=== PATIENT | female | born 2000 | race Caucasian/White ===

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

== ENCOUNTER → 2019-10-16 | Outpatient (CLI) | payer OTHER | LOC: COL.RAD 14:17 | DX: N94.6 Dysmenorrhea, unspecified (principal); R19.09 Other intra-abdominal and pelvic swelling, mass and lump | CPT/HCPCS: A9585 ==

== ENCOUNTER → 2021-08-08 | Outpatient (CLI) | payer OTHER | LOC: COL.RAD 07:31 | DX: N83.201 Unspecified ovarian cyst, right side (principal); N80.9 Endometriosis, unspecified | CPT/HCPCS: A9575 ==

== ENCOUNTER 2021-12-10 17:39 | Emergency (ER) | payer SELFPAY ==
[~2021-12-10] VITALS: Ht 154.9 cm; Wt 61.4 kg
[2021-12-10 17:59] VITALS: BP 139/89; TEMP 98.6
[2021-12-10 18:46] LABS: BASO % 0.7 % (0.0-2.0); EOS # 0.2 K/mm3 (0.0-0.7); EOS % 3.4 % (0.0-4.0); GRAN # 2.4 K/mm3 (1.4-6.5); GRAN % 53.4 % (42.2-75.2); HEMATOCRIT 39.2 % (37.0-47.0); HEMOGLOBIN 13.4 g/dl (12.5-16.0); LYMPH # 1.5 K/mm3 (1.2-3.4); LYMPH % 33.3 % (20.0-51.0); MEAN CELL VOLUME 85 fl (80.0-100.0); MEAN CORPUSCULAR HEMOGLOBIN 29 pg (27-31); MEAN CORPUSCULAR HGB CONC 34 g/dl (33.0-37.0); MEAN PLATELET VOLUME 10.4 fl (7.4-10.4); MONO # 0.4 K/mm3 (0.1-0.6); MONO % 8.7 % (1.7-9.3); PLATELET COUNT 169 K/mm3 (130-400); RED BLOOD COUNT 4.61 M/mm3 (4.10-5.30); REDCELL DISTRIBUTION WIDTH-CV 12.5 % (11.5-14.5)
[2021-12-10 18:57] LABS: COLLECTION METHOD CLEAN CATCH
[2021-12-10 19:00] LABS: ALBUMIN 3.9 gm/dL (3.5-5.0); BILIRUBIN,TOTAL 0.3 mg/dL (0.2-1.2); CREATININE, serum 0.75 mg/dL (0.57-1.11); POTASSIUM 3.6 mmol/L (3.5-4.5); TOTAL PROTEIN 7.1 gm/dL (6.2-8.1)
[2021-12-10 19:03] LABS: MUCOUS Present (NOT PRESENT); PH 6 (5-8); URINE APPEARANCE Hazy (CLEAR/HAZY); URINE BACTERIA Rare /hpf (NONE SEEN); URINE BLOOD Negative (NEGATIVE); URINE COLOR Yellow (YELLOW); URINE GLUCOSE Negative (NEGATIVE); URINE KETONE Negative (NEGATIVE); URINE NITRATE Negative (NEGATIVE); URINE PROTEIN(semi-quant) Negative (NEGATIVE); URINE RBC 0-2 /hpf (0-2); URINE UROBILINOGEN Negative (NEGATIVE)
[2021-12-10] MEDS ORDERED: ZOFRAN ODT4 MG PO (19:51)
[2021-12-10] MEDS ORDERED: ULTRAM 50MG TAB50 MG PO (19:51)
[2021-12-10 20:03] VITALS: PULSE 79
== END 2021-12-10 20:05 | disposition home or self-care (01) ==
LOC: COL.ER 17:39
PROVIDERS: Nurse Practitioner Primary Care
DX: R10.11 Right upper quadrant pain (principal); R10.12 Left upper quadrant pain; R10.13 Epigastric pain; R19.7 Diarrhea, unspecified; R11.0 Nausea; Z32.02 Encounter for pregnancy test, result negative; Z28.310 Unvaccinated for COVID-19
CPT/HCPCS: J1885; J2405; J7030

== ENCOUNTER 2022-09-23 13:08 | Emergency (ER) | payer OTHER ==
[~2022-09-23] VITALS: Ht 154.9 cm; Wt 65.9 kg
[~2022-09-23 13:08] MED LIST changes: +ULTRAM 50MG TAB50 MG PO; +ZOFRAN ODT4 MG PO
[2022-09-23 13:14] VITALS: BP 125/87; TEMP 98.4
[2022-09-23 15:34] VITALS: PULSE 71
== END 2022-09-23 15:35 | disposition home or self-care (01) ==
LOC: COL.ER 13:08
DX: S09.90XA Unspecified injury of head, initial encounter (principal); Z28.310 Unvaccinated for COVID-19; W50.0XXA Accidental hit or strike by another person, initial encounter

== ENCOUNTER 2023-08-23 20:53 | Emergency (ER) | payer BC ==
[~2023-08-23] VITALS: Ht 154.9 cm; Wt 68.2 kg
[2023-08-23 21:00] VITALS: TEMP 98.2
[2023-08-23] MEDS ORDERED: NS 1,000 ML IV ONE (21:15)
[2023-08-23] MEDS ORDERED: Morphine 4 MG/ML VIAL IV ONE (21:15)
[2023-08-23] MEDS ORDERED: Ondansetron 4 MG/2 ML VIAL IV ONE (21:15)
[2023-08-23 21:43] LABS: COLLECTION METHOD CLEAN CATCH
[2023-08-23 21:44] LABS: BASO % 0.6 % (0.0-2.0); EOS # 0.1 K/mm3 (0.0-0.7); EOS % 2.2 % (0.0-4.0); GRAN # 2.8 K/mm3 (1.4-6.5); GRAN % 53.1 % (42.2-75.2); HEMATOCRIT 41.1 % (37.0-47.0); HEMOGLOBIN 14.1 g/dl (12.5-16.0); LYMPH # 1.9 K/mm3 (1.2-3.4); LYMPH % 35.3 % (20.0-51.0); MEAN CELL VOLUME 85 fl (80.0-100.0); MEAN CORPUSCULAR HEMOGLOBIN 29 pg (27-31); MEAN CORPUSCULAR HGB CONC 34 g/dl (33.0-37.0); MEAN PLATELET VOLUME 10.9 fl (7.4-10.4); MONO # 0.5 K/mm3 (0.1-0.6); MONO % 8.4 % (1.7-9.3); PLATELET COUNT 174 K/mm3 (130-400); RED BLOOD COUNT 4.82 M/mm3 (4.10-5.30)
[2023-08-23 21:55] LABS: ALBUMIN 4.2 g/dL (3.5-5.0); BILIRUBIN,TOTAL 0.4 mg/dL (0.2-1.2); CREATININE, serum 0.77 mg/dL (0.57-1.11); POTASSIUM 3.7 mEq/L (3.5-4.5); TOTAL PROTEIN 7.6 g/dl (6.2-8.1)
[2023-08-23 22:02] LABS: PH 5.5 (5.0-8.5); URINE APPEARANCE CLEAR (CLEAR/HAZY); URINE BLOOD NEGATIVE (NEGATIVE); URINE COLOR YELLOW (YELLOW); URINE GLUCOSE NEGATIVE (NEGATIVE); URINE KETONE TRACE (NEGATIVE); URINE NITRATE NEGATIVE (NEGATIVE); URINE PROTEIN(semi-quant) NEGATIVE (NEGATIVE); URINE UROBILINOGEN 0.2 E.U/dL (0.2-1.0)
[2023-08-23] MEDS ORDERED: Iohexol 300 - 100 ML VIAL IV ONE (22:27)
[2023-08-23] MEDS ORDERED: NS 50 ML IV SCH (22:27)
[2023-08-23] MEDS ORDERED: NORCO 325 MG-51 TAB PO (23:21)
[2023-08-23] MEDS ORDERED: ZOFRAN ODT4 MG PO (23:21)
[2023-08-23 23:57] VITALS: BP 123/87; PULSE 80
== END 2023-08-23 23:57 | disposition home or self-care (01) ==
LOC: COL.ER 20:53
PROVIDERS: Personal Emergency Response Attendant
DX: R10.84 Generalized abdominal pain (principal); R11.0 Nausea
CPT/HCPCS: J2270; J2405; J7030; Q9967